=== PATIENT | male | born 1965 | race Hispanic/Latino ===

== ENCOUNTER 2024-12-03 13:40 | Emergency (ER) | payer BC ==
[~2024-12-03] VITALS: Ht 172.7 cm; Wt 99.8 kg
--- NOTE | 2024-12-03 14:40 | NUR ---
FOREIGN BODYE (INSECT) REMOVED FROM LEFT EAR BY PROVIDER
[2024-12-03 14:59] LABS: IMMATURE GRANULOCYTE ABSOLUTE 0.02 K/uL (0-1); NUCLEATED RED BLOOD CELLS 0.0 % (0.0-0.19); PLATELET COUNT (AUTO) 175 K/uL (130-400); RED BLOOD CELL COUNT(AUTO) 5.24 MIL/uL (4.50-6.20); RED CELL DISTRIBUTION WIDTH 12.9 % (11.0-15.5); WHITE BLOOD COUNT (AUTO) 6.8 K/uL (4.8-10.8)
--- NOTE | 2024-12-03 15:11 | HMCIMG ---
EXAM: CT Head Without IV contrast. CLINICAL HISTORY: Dizziness TECHNIQUE: Axial computed tomography images of the head/brain without intravenous contrast. COMPARISON: None provided. FINDINGS: BRAIN: No evidence of acute hemorrhage. No mass lesion. No CT evidence for acute territorial infarct. No midline shift or extra-axial collections. VENTRICLES: No hydrocephalus. ORBITS: The orbits are unremarkable. SINUSES AND MASTOIDS: The paranasal sinuses and mastoid air cells are clear. BONES: No fracture. SOFT TISSUES: Unremarkable. IMPRESSION: No acute intracranial abnormality. /[place]
[2024-12-03 15:22] LABS: ASPARTATE AMINOTRANSFERASE 17.0 U/L (10-37); CREATININE 0.7 mg/dL (0.5-1.3); GLOMERULAR FILTR. RATE CALC 106.0 mL/min (>90); GLUCOSE,RANDOM 122.0 mg/dL (70-105); SODIUM SERUM 140.0 mmol/L (136-145); TOTAL PROTEIN, SERUM 6.5 g/dL (6.0-8.3); UREA NITROGEN, BLOOD 17.0 mg/dL (7-18)
--- NOTE | 2024-12-03 15:30 | ERN ---
General Chief Complaint: Dizzy/Light Headed Stated Complaint: DIZZINESS, HEADACHE, N/V Time Seen by MD: 13:40 History of Present Illness Initial Comments A 59-year-old male presented to the emergency department with a three-day history of headache and dizziness, associated with nausea. The headache is described as persistent and is aggravated by turning his head to the left. The patient reports that the symptoms began after he noticed a crawling sensation in his left ear at night, preceding the onset of his current complaints. He denies tinnitus, hearing loss, or aural fullness. Patient denies any fever or chills. Modifying Factors: worsens with movement (It worsens when he turns his head left.) Associated Symptoms: headaches, nausea/vomiting Allergies: Coded Allergies: No Known Allergies (Unverified Allergy, Unknown, 12/03/24) Past Medical History Past Medical History: Diabetes-Type II, Hypertension Past Surgical History: Cholecystectomy Constitutional: (+) other documentation (Feels Dizziness); (-) chills, (-) diaphoresis, (-) fever, (-) malaise, (-) weakness EENTM: (+) ear pain Respiratory: (-) cough, (-) orthopnea, (-) short of breath, (-) stridor, (-) wheezing, (-) other documentation Cardiovascular: (-) chest pain, (-) edema, (-) palpitations, (-) syncope, (-) dyspnea on exertion, (-) other documentation Gastrointestinal/Abdominal: (+) nausea Musculoskeletal: (-) Neck pain, (-) back pain, (-) Flank Pain, (-) joint pain, (-) joint swelling, (-) muscle pain, (-) muscle stiffness, (-) gout, (-) other documentation Skin: (-) laceration, (-) contusion, (-) abrasion, (-) abscess, (-) rash, (-) change in color, (-) change in hair, (-) change in nails, (-) diaphoresis, (-) dryness, (-) other documentation Neuro: (+) dizziness; (-) altered mental status, (-) headache, (-) syncope, (-) paralysis, (-) numbness, (-) seizure, (-) pre-existing deficit, (-) tremors, (-) weakness, (-) slurred speech, (-) vertigo, (-) other documentation Psych: (-) depression, (-) suicidal ideation, (-) anxiety, (-) emotional problems, (-) auditory hallucinations, (-) visual hallucinations Physical Exam General Appearance: (+) apparent distress Orientation: (+) alert, (+) oriented x 3 Head/Face Trauma: No Ear, Nose, Throat: (+) hearing grossly normal, (+) other documentation (On otoscopic examination, an insect was visualized impacted within the left external auditory canal. There was a small amount of active bleeding noted at the site of impaction, consistent with localized mucosal trauma.) Neck: (+) normal inspection, (+) supple Respiratory: (+) chest non-tender, (+) lungs clear Heart: (+) regular, (+) no gallop Vascular: (+) no edema, (+) normal peripheral pulse Gastrointestinal: (+) soft, (+) non-tender, (+) no organomegaly Extremities: (+) normal range of motion, (+) non-tender Neurologic/Psychiatric: (+) normal speech, (+) no sensory deficits Results Laboratory and Microbiology Lab and Micro Result Laboratory Tests Test 12/03/24 14:48 White Blood Count 6.8 K/uL (4.8-10.8) Red Blood Count 5.24 MIL/uL (4.50-6.20) Hemoglobin 15.5 g/dL (14.0-18.0) Hematocrit 45.7 % (42-54) Mean Corpuscular Volume 87.2 fL (79-99) Mean Corpuscular Hemoglobin 29.6 pg (27.0-33.0) Mean Corpuscular Hemoglobin Concent 33.9 g/dL (32.0-36.0) Red Cell Distribution Width 12.9 % (11.0-15.5) Platelet Count 175 K/uL (130-400) Mean Platelet Volume 10.6 fL (7.5-10.5) H Immature Granulocyte % (Auto) 0.3 % (0-1) Neutrophils (%) (Auto) 75.1 % (40.0-77.0) Lymphocytes (%) (Auto) 16.2 % (21.0-51.0) L Monocytes (%) (Auto) 6.8 % (3.0-13.0) Eosinophils (%) (Auto) 1.5 % (0.0-8.0) Basophils (%) (Auto) 0.1 % (0.0-5.0) Neutrophils # (Auto) 5.1 K/uL (1.8-7.7) Lymphocytes # (Auto) 1.1 K/uL (1.0-4.8) Monocytes # (Auto) 0.5 K/uL (0.1-1.0) Eosinophils # (Auto) 0.10 K/uL (0.00-0.70) Basophils # (Auto) 0.01 K/uL (0.00-0.20) Absolute Immature Granulocyte (auto 0.02 K/uL (0-1) Nucleated Red Blood Cells 0.0 % (0.0-0.19) Sodium Level 140 mmol/L (136-145) Potassium Level 4.1 mmol/L (3.5-5.1) Chloride Level 106 mmol/L (101-111) Carbon Dioxide Level 27 mmol/L (21-32) Blood Urea Nitrogen 17 mg/dL (7-18) Creatinine 0.7 mg/dL (0.5-1.3) Glomerular Filtration Rate Calc 106 mL/min (>90) Random Glucose 122 mg/dL (70-105) H Lactic Acid Level 1.3 mmol/L (0.8-2.5) Total Calcium 8.9 mg/dL (8.5-10.1) Total Bilirubin 0.6 mg/dL (0.2-1.0) Direct Bilirubin 0.1 mg/dL (0.0-0.3) Aspartate Amino Transf (AST/SGOT) 17 U/L (10-37) Alanine Aminotransferase (ALT/SGPT) 24 U/L (12-78) Alkaline Phosphatase 68 U/L (50-136) Troponin I High Sensitivity 8 ng/L (4-75) Total Protein 6.5 g/dL (6.0-8.3) Albumin 3.4 g/dL (3.5-5.0) L Procalcitonin < 0.05 ng/mL (0.05-0.5) L Labs Reviewed?: Yes MDM MDM: Differential diagnosis: BpPV, Foreign body in external auditory canal, vestibular migraine. Rationale: Tests considered and ordered secondary to shared decision making include: labs, ECG and radiology Previous outside records reviewed: Old ER visits. Risk of complication and/or morbidity or mortality of patient management: None Medications-Per medication reconciliation Need for hospitalization: Patient does not meet criteria for hospitalization. Need for emergency major/minor surgery: No A 59-year-old male presented to the emergency department with a three-day history of headache and dizziness, associated with nausea. The headache is humphrey cribed as persistent and is aggravated by turning his head to the left. The patient reports that the symptoms began after he noticed a crawling sensation in his left ear at night, preceding the onset of his current complaints. Patient examination, labs, radiology was reviewed and patient is being discharged with Foreign body in external auditory canal. ED Course Orders Procedure Category Date Status Time 12 Lead Ekg Tracing- EKG 12/03/24 Logged Technical 14:36 Cbc With Differential LAB 12/03/24 Complete 14:36 Basic Metabolic Panel LAB 12/03/24 Complete 14:36 Hepatic Function Panel LAB 12/03/24 Complete 14:36 Lactic Acid LAB 12/03/24 Complete 14:36 Procalcitonin LAB 12/03/24 Complete 14:36 Troponin I High LAB 12/03/24 Complete Sensitivity 14:36 Urinalysis LAB 12/03/24 In Process W/Microscopic 14:36 Chest 1vw RAD 12/03/24 Resulted 14:36 Ct Head/Brain W/O CT 12/03/24 Resulted Contrast 14:36 Meclizine Hcl 25 Mg PHA 12/03/24 Complete (Antivert 25 Mg) 15:29 Current Medications Medications (Trade) Dose Ordered Sig/Guillermo Route PRN Reason Start Time Stop Time Status Last Admin Dose Admin Meclizine HCl (ANTIvert 25 mg) 25 mg STAT STAT PO 12/03/24 15:29 12/03/24 15:35 DC 12/03/24 15:38 Vital Signs Date Time Temp Pulse Resp B/P (MAP) Pulse Ox O2 Delivery O2 Flow Rate FiO2 12/03/24 15:11 98.6 61 18 145/88 99 Room Air* 0 21 12/03/24 14:50 71 18 170/103 99 Room Air* 0 21 12/03/24 14:06 63 18 150/81 99 Room Air* 0 21 12/03/24 13:41 98.8 67 16 176/97 99 Room Air 0 DX & DISP Disposition: Discharge Departure Impression: Primary Impression: Dizziness Condition: Stable Referrals: DEEP DIAZ MD (PCP) GARRETT CHAVARRIA MD Dec 03, 2024 15:30 WINDY GRIJALVA MD Dec 03, 2024 16:15
--- NOTE | 2024-12-03 15:40 | HMCIMG ---
EXAM: CR Chest, 1 View. CLINICAL HISTORY: Shortness of breath COMPARISON: None provided. FINDINGS: LUNGS: The lungs show no infiltrate or other acute finding. PLEURAL SPACES: No pleural effusion or pneumothorax. MEDIASTINUM: Cardiac size and mediastinal contours within normal limits. BONES: No aggressive appearing osseous lesion seen. IMPRESSION: No acute cardiopulmonary pathology is evident. /[place]
[2024-12-03 16:12] LABS: APPEARANCE,URINE CLEAR (CLEAR); GLUCOSE, URINE (UA) NEGATIVE (NEGATIVE); LEUKOCYTE ESTERASE ,URINE NEGATIVE Leu/uL (NEGATIVE); NITRATE,URINE NEGATIVE (NEGATIVE); OCCULT BLOOD,URINE NEGATIVE (NEGATIVE)
[2024-12-03 16:15] LABS: SQUAMOUS EPITHELIAL CELL,UR RARE /HPF (0-2)
[2024-12-03 16:20] VITALS: BP 143/85; PULSE 65; RESP 18; TEMP 98.6; O2SAT 99
[2024-12-03] MEDS ORDERED: CIPR7.5D7 OTIC (16:26)
--- NOTE | 2024-12-04 07:11 | EKG ---
[facility] Test Date: 2024-12-03 Test Time: 14:42:31 Pat Name: DARIUS ALVARADO Department: ED Room: Gender: M [place] Carver: [id number] : 1965 Requested By: WINDY GRIJALVA Order Number: [id number] Reading MD: Jass Macdonald Measurements Intervals [place] Rate: 63 P: 64 CA: 157 QRS: 47 QRSD: 92 T: 58 QT: 400 QTc: 411 Interpretive Statements Sinus rhythm No previous ECG available for comparison Electronically Signed On 12-04-2024 17:23:39 CDT by Jass Macdonald Please click the below link to view image of tracing.
== END 2024-12-03 16:32 | disposition home or self-care (01) ==
LOC: EDH 13:40
DX: R42 Dizziness and giddiness (principal); E11.9 Type 2 diabetes mellitus without complications; I10 Essential (primary) hypertension; Z90.49 Acquired absence of other specified parts of digestive tract
CPT/HCPCS: 36415; 70450; 71045; 80048; 80076; 81001; 83605; 84145; 84484; 85025; 93005; 99284